=== PATIENT | female | born 1960 | race Caucasian/White ===

== ENCOUNTER 2016-06-16 19:28 | Inpatient (IN) | payer MEDICAID ==
[~2016-06-16] VITALS: Ht 162.6 cm; Wt 54.8 kg
--- NOTE | ~2016-06-16 | OR ---
PATIENT'S NAME: MARIE STOCK [facility] AGE: 56 Y [address] ROOM: [place] [address] LOCATION: [facility] [place] ADMIT DATE: 06/16/2016 OR/Procedure Report DISCHARGE DATE: FAMILY PHYSICIAN: Rajinder Villarreal DO ATTENDING PHYSICIAN: Jah OSORIO SURGEON: Darrick Dunbar MD POTTER OR CERAMIC ARTIST: DATE OF PROCEDURE: 06/24/2016 PROCEDURE: Paracentesis. INDICATION: Ascites. PROCEDURE NOTE: Informed consent was obtained. Risks and benefits explained. Using ultrasound guidance, a pocket of fluid was identified on the left lower quadrant. The patient was prepped in sterile fashion. Local anesthesia was achieved with lidocaine 1%. Ten blade was used to make a gómez. Paracentesis catheter was advanced with aspiration of yellow liquid. Catheter was advanced over the needle and needle was inserted. Using vacuum container system, 8.5 L of franko yellow liquid was aspirated without any complication. No immediate complications were noted. Fluid was sent for cytology. We already had a cell count and differential from the previous procedure. DARRICK DUNBAR MD MERRICK/anyil /[id number] d: 06/24/16 2309 t: 06/29/16 1502, OPERATIVE SUMMARY
--- NOTE | ~2016-06-16 | HP ---
PATIENT'S NAME: MARIE STOCK [facility] AGE: 56 Y [address] ROOM: [address] [place], [place] [address] [place] [facility] [place]: 06/16/2016 History & Physical DISCHARGE DATE: FAMILY PHYSICIAN: PHYSICIAN, UNKNOWN ATTENDING PHYSICIAN: Jah OSORIO DATE OF SERVICE: CHIEF COMPLAINT: Hepatic encephalopathy and gross ascites. HISTORY OF PRESENTING ILLNESS: This 56-year-old white female, who appears much older than her stated age was transferred to [facility] from [place] with presumed hepatic encephalopathy and gross ascites. She has a history of hepatitis C. She had followed with a specialist in [place], but switched to Dr. Miller in [place] at [facility] last fall apparently. She was treated with ribavirin, but has not been taking it recently. The reasons are unclear. Briefly, she was to attend a family barbecue. Family members found her essentially unresponsive and she was taken to the [place] [facility]. While she was there, and during her evaluation, she did eventually become more arousable. She had some basic laboratory workup including CBC, CMS, and received some IV fluids there. Because of the concern for worsening condition and the need for specialty care, it was requested to transfer her to [facility] under the care of Dr. Miller. Apparently, she was declined for admission there and it was decided to transfer her here for a higher level of care and definitive evaluation and management. The case had been discussed with Dr. Collado, Gastroenterology. On her arrival to the floor, she is awake and oriented. She complains of feeling unwell and has not felt well for several weeks. She describes a feeling of weakness and malaise and abdominal distress. She has also had quite a bit of nausea for the last 24 hours. She has not vomited. Bowels have been moving fairly regularly, although she has not stooled since yesterday. She voids normally and denies any dysuria, frequency, or urgency. She has not noticed any bleeding and no blood in her stools or black tarry stools. She denies any other associated physical constitution complaints. PAST MEDICAL HISTORY: ALLERGIES: NO KNOWN DRUG ALLERGIES. PATIENT'S NAME: MARIE STOCK [facility] AGE: 56 Y [address] [facility]: [facility] [place], [place] [address] [place] [facility] [place]: 06/16/2016 History & Physical DISCHARGE DATE: FAMILY PHYSICIAN: PHYSICIAN, UNKNOWN ATTENDING PHYSICIAN: Jah OSORIO ILLNESSES: 1. Hepatitis C. 2. Cirrhosis of the liver. 3. Tobacco dependence. 4. Severe protein calorie malnutrition. 5. Abdominal ascites status post previous abdominal paracentesis within the last 3-4 months. CURRENT MEDICATIONS: Spironolactone 200 mg p.o. daily, Lasix 80 mg p.o. daily, ribavirin 400 mg p.o. b.i.d., (not currently taking.) FAMILY HISTORY: Negative for heart attack or stroke. SOCIAL HISTORY: She is and lives independently in [place]. Her mother and her brother provide good social support. She has a 30+ pack year history of smoking tobacco, continues to smoke a couple of cigarettes per day. She denies significant alcohol use, although she has consumed alcohol occasionally. Her last drink was in February. She reports that she has currently quit. She denies any other illicit drug use. She thinks that she may have contracted hepatitis C from a tattoo. REVIEW OF SYSTEMS: As per HPI. All other organ systems reviewed and are negative. OBJECTIVE: VITAL SIGNS: Temperature. 98.9, pulse 102, respirations 18, blood pressure 134/88, O2 saturation 100% on room air. GENERAL: She is disheveled, ill appearing, much older than her stated age, but is in no acute distress. SKIN: Supple, sallow, warm and dry. There are areas of scabbing and erosion over the trunk abdomen and extremities. HEENT: Otherwise, normocephalic. Sclerae nonicteric. Pupils are equal, round, slow to react to light. Extraocular movements appear intact. Nasal turbinates normal in appearance. Oropharynx clear. Mucous membranes are pink and moist. She is edentulous. NECK: Supple. Cachectic. No masses or adenopathy. No thyromegaly. No JVD. CHEST: Wall is symmetrical. HEART: Tachycardic, but regular. LUNGS: Diminished at the bases with long expiratory phase. No yelitza wheezes. No rales or consolidation. ABDOMEN: Firm, protuberant. There is a tense ascitic fluid wave. No PATIENT'S NAME: MARIE STOCK [facility] AGE: 56 Y [address] ROOM: [address] [place] [id number] [place] [facility] [place]: 06/16/2016 History & Physical DISCHARGE DATE: FAMILY PHYSICIAN: PHYSICIAN, UNKNOWN ATTENDING PHYSICIAN: Jah OSORIO palpable masses. Bowel sounds are present. and RECTAL: Not done. EXTREMITIES: Display cachexia. No clubbing, cyanosis, or edema. NEUROLOGICALLY: Mentation is slowed, but she is oriented x2 (not oriented to the date). There are no focal deficits. LABORATORY AND X-RAY DATA: From [place], urinalysis shows trace intact blood. Urine for drugs of abuse is negative. Serum ethanol is below limits of detectability. Chemistries reveal a BUN and creatinine of 52 and 1.7 respectively. Sodium and potassium 140 and 5.2, chloride and CO2 are 105 and 22. AST and ALT 151 and 119 respectively, bilirubin is 1.4. Glucose was 111. PT/INR 14.5 and 1.1 respectively. CBC showed a white blood cell count of 7.4, hemoglobin is 12.4, hematocrit 34.9, platelets 248. CT scan of the head is negative for any acute intracranial process. ASSESSMENT/PLAN: 1. Acute encephalopathy, hepatic. Clinically improved from the point of her presentation. We will admit to inpatient care and provide some supportive cares and clinical monitoring. We will hold off on any additional IV fluids for tonight, but initiate a bowel regimen with lactulose and start rifaximin. We will get ammonia level tonight and follow that serially as well. The differential diagnosis does still include possible toxic and metabolic causes and including the possibility of infectious causes (see below.). 2. Abdominal ascites, secondary to cirrhosis of the liver. We will initiate a diuretic regimen with IV Bumex. We will give albumin beginning this evening and 25 g daily for total of 3 days. We will hold the oral Lasix and monitor her electrolytes serially. There is mild concern for bacterial peritonitis. We will obtain blood cultures and lactate. We will not be able to obtain abdominal paracentesis tonight or even possibly tomorrow. We will go ahead and initiate broad-spectrum antibiotic therapy with Rocephin 2 grams IV Q 24 hours. 3. Acute kidney injury. On chronic kidney disease, stage III. We will add albumin as above. Avoid overly aggressive IV fluids at least for now and follow this serially with diuresis. 4. Hepatitis C with cirrhosis of the liver. She has been treated with ribavirin as outlined above. She is not currently taking that medication and the reasons are unclear. Her current MELD score based on data from [place] is 14. I did discuss code status with her and she requested to be DNR and DNI, although she appears lucid and able to make rational decisions, we will hold off on entering in order into the chart until this can be discussed with her again serially tomorrow. 5. Deep venous thrombosis prophylaxis. We will utilize pneumatic compression devices, but hold off on heparin or Lovenox in light of the PATIENT'S NAME: MARIE STOCK [facility] AGE: 56 Y [address] ROOM: [place] [address] [place] [facility] [place]: 06/16/2016 History & Physical DISCHARGE DATE: FAMILY PHYSICIAN: PHYSICIAN, UNKNOWN ATTENDING PHYSICIAN: Jah OSORIO possibility of abdominal paracentesis within the next 24 hours. MD ZACH SCHULTZ/lucero /[id number] D: T: HISTORY & PHYSICAL
--- NOTE | ~2016-06-16 | DS ---
PATIENT'S NAME: MARIE STOCK [facility] AGE: 56 Y [address] ROOM: [address] [place] [id number] LOCATION: [facility] [place] ADMIT DATE: 06/16/2016 Discharge Summary DISCHARGE DATE: FAMILY PHYSICIAN: Rajinder Villarreal DO ATTENDING PHYSICIAN: Jah OSORIO DISCHARGE SUMMARY/TRANSFER NOTE PRINCIPAL DIAGNOSES: 1. Decompensated liver disease leading to refractory ascites and hepatic encephalopathy. 2. Hepatitis C, untreated. 3. Liver cirrhosis. 4. Severe protein calorie malnutrition. HOSPITAL COURSE: A 56-year-old lady who appears much older than her stated age with a history of tobaccoism and cirrhotic liver disease. The patient of Dr. Miller at [facility], who was transferred here from [facility] with altered mental status. On initial evaluation in the hospital, she was found to be in hepatic encephalopathy. She was treated with lactulose as well as rifaximin with gradual improvement of her mentation and being totally alert and oriented on the day of the transfer. During the course of the hospitalization which was over 1 week, she developed massive ascites which was tapped three times with a total paracentesis fluid of 22 L. She also developed KERRY, all the diuretics and antihypertensives were held. She was volume expanded with the crystalloid as well as colloid without a significant improvement in the kidney function. Nephrology and Gastroenterology consultation was made and she was started on midodrine, octreotide, and scheduled albumin considering the diagnosis of hepatorenal syndrome. On consultation with Nephrology and Gastroenterology, it was decided that the patient would benefit from further evaluation for liver transplant at this point. On the day of the transfer, we stopped her albumin given albumin was 4.7, as well as switch octreotide to subcutaneous dosing as well as continuing the midodrine. Her MELD score today is 14 using the INR from yesterday. CBC today showed hemoglobin of 9.0, hematocrit of 26. Platelets yesterday were 154. The chemical panel today showed sodium of 141, potassium 4.1, chloride 113, bicarb 17, calcium 8.1, BUN 52. Current medication orders include octreotide 200 mcg t.i.d. subcu, heparin 5000 units q.8 hours subcu, lactulose 30 mL t.i.d. p.o., midodrine 15 mg t.i.d. a.c., pantoprazole 40 mg p.o. daily, Florastor 250 mg b.i.d., rifaximin 550 mg b.i.d., ceftriaxone 2 g IV daily. She has been on ceftriaxone since for 06/16/2016 for a total of 9 days, now which can be stopped. She can use oral prophylactic dose of ciprofloxacin for SBP prophylaxis. I did speak to the hospitalist from [facility], who graciously accepted this patient. Condition on transfer stable, vitals stable. The patient will be transported on an ambulance. PATIENT'S NAME: MARIE STOCK [facility] AGE: 56 Y [address] ROOM: [place] [address] LOCATION: [facility] [place] ADMIT DATE: 06/16/2016 Discharge Summary DISCHARGE DATE: FAMILY PHYSICIAN: Rajinder Villarreal DO ATTENDING PHYSICIAN: Jah OSORIO MD MERRICK TORREZ/lucero /[id number] d: 06/25/16 1603 t: 06/29/16 1505, DISCHARGE SUMMARY
--- NOTE | ~2016-06-16 | CON ---
PATIENT'S NAME: MARIE STOCK [facility] AGE: 56 Y [address] ROOM: [address] [place], [place] [address] LOCATION: [facility] [place] ADMIT DATE: 06/16/2016 Consultation DISCHARGE DATE: FAMILY PHYSICIAN: Rajinder Villarreal DO ATTENDING PHYSICIAN: Jah OSORIO DATE OF CONSULTATION: 06/17/2016 REFERRING PHYSICIAN: Adolfo Collado MD REASON FOR CONSULTATION: Acute kidney injury. REFERRING PHYSICIAN: Braydon Nagy MD. HISTORY OF PRESENT ILLNESS: A 56-year-old, female, with history of hepatitis C-related end-stage kidney disease, was on Lasix and Aldactone and possibly ribavirin best antiviral agent for hepatitis C, transferred from [place] with portosystemic encephalopathy. Nephrology consultation has been called for an KERRY. As per patient, she was attending a [facility] yesterday when the relative found her essentially unresponsive and taken her to the [place] Emergency Room; however, during the evaluation over there, she became more arousable. She received some IV fluids there, had some basic lab workup; however, she was requested to transfer to [facility] for further management. As per the previous records, she was following with Dr. Miller at [facility] for her hepatitis C where she was getting an IV medications for hepatitis C since January last year and was also on ribavirin, but which she is not taking for the last few weeks to months. She is noted to have significant ascites as per patient, which is slightly worse than before. She was on Lasix and Aldactone, Lasix 80 mg p.o. daily and Aldactone 200 mg p.o. daily, and the patient has claimed that she was compliant with her medication. She is noted to have other stigmata of chronic liver disease including spider angiomata and distended abdominal veins. She also noted to have some itchy rash on bilateral upper and lower extremities along with the trunk, but it is not raised maculopapular rash as we see in the cryoglobulinemia associated with hepatitis C. Among the lab tests done in [place], we also noted that the urinalysis shows specific gravity of 1.020, but other than that, urine appears to be pretty bland without any significant protein or blood in the urine. The patient's creatinine in March was 0.7, which is 1.7 at [place] and 1.8 on transfer. The patient denied any urinary symptoms including dysuria, urgency, frequency, hesitancy, but could not specify any thing about urinary volume. REVIEW OF SYSTEMS: GENERAL: No fever. No chills or rigor. HEENT: No sore throat. No sinus congestion. CVS: No chest pain. Has some exertional shortness of breath. No leg swelling. RESPIRATORY: Occasional shortness of breath. No cough or wheezing. GENITOURINARY: No pain with urination. No increased frequency. No nocturia. GASTROINTESTINAL: Significant abdominal distention with ascites as mentioned in HPI. No abdominal pain. No nausea or vomiting. NEUROLOGIC: No weakness. No seizures. SKIN: No rash. No itching. ALLERGIES: No seasonal allergy. No hayfever. ENDOCRINE: No heat intolerance. No cold intolerance. PSYCHIATRIC: No sadness. No crying spells. No history of panic attack.PATIENT'S NAME: MARIE STOCK [facility] AGE: 56 Y [address] ROOM: [place] [address] LOCATION: [facility] [place] ADMIT DATE: 06/16/2016 Consultation DISCHARGE DATE: FAMILY PHYSICIAN: Rajinder Villarreal DO ATTENDING PHYSICIAN: Jah OSORIO PAST MEDICAL HISTORY: 1. Hepatitis C. 2. End-stage liver disease/cirrhosis of liver. 3. Severe protein calorie malnutrition. 4. Tobacco dependence. 5. Progressive ascites, status post previous paracentesis in the last 3-4 months. ALLERGIES: NO KNOWN DRUG ALLERGIES. CURRENT MEDICATIONS: 1. Lasix 80 mg p.o. daily. 2. Spironolactone 200 mg p.o. daily. 3. Ribavirin 400 mg p.o. b.i.d., but currently not taking. FAMILY HISTORY: Noncontributory for kidney disease or dialysis. SOCIAL HISTORY: . Lives independently at [place]. Has good social support including her mother and brother. 30 [id number] history of smoking, still continue to smoke a couple of cigarettes per day. No significant alcohol abuse, but in the past has consumed alcohol occasionally, last drink was in February. No history of illicit drug use and contracted hepatitis C from a tattoo. PHYSICAL EXAMINATION: VITAL SIGNS: Blood pressure 120 to 150 over 60 to 80, temperature 98.9, pulse 90-100, respiratory rate 18, and oxygen saturation 95-97% on room air. GENERAL: Middle aged lady, lying in bed, appears to be cachectic, but not in apparent distress. HEAD: Dry mucous membrane. Bilateral PERRLA. Scleral icterus. NECK: JVD at the upper border of this clavicle. No thyromegaly or lymphadenopathy. CVS: S1 and S2 plus irregular rate. No significant murmur, rub, or gallop. CHEST: Bilateral air entry equal. No wheeze or rales. ABDOMEN: Soft, distended. No significant tenderness. Bowel sounds present. Significant distention of the abdominal wall veins. EXTREMITIES: No cyanosis, clubbing, or jaundice. No dependent edema. MUSCULOSKELETAL: No limitation of range of motion. SKIN: No pallor, cyanosis, or icterus. MICROBIOLOGY PROFESSOR: Mental status is still cloudy, however, could participate in a meaningful conversation. Moving all 4 extremities. No gross focal neurological deficit. LABORATORY STUDIES: Lactate 2.2. Ammonia 55. CBC: Hemoglobin 10.9, WBC 7.5, and platelet 243. Chemistry: Sodium 139, potassium 4.1, chloride 106, bicarbonate 20, BUN 50, and creatinine 1.8. Albumin 2.5, phosphorus 3.1, and magnesium 2.0. UA and urine electrolytes are pending.PATIENT'S NAME: MARIE STOCK [facility] AGE: 56 Y [address] ROOM: [place] [address] LOCATION: [facility] [place] ADMIT DATE: 06/16/2016 Consultation DISCHARGE DATE: FAMILY PHYSICIAN: Rajinder Villarreal DO ATTENDING PHYSICIAN: Jah OSORIO ASSESSMENT/PLAN: 1. Acute kidney injury versus acute kidney injury on chronic kidney disease. Creatinine in March was 0.77 and currently it is 1.7-1.8 range; however, we do not have any interval creatinine since March and we do not know most recent renal function; however, it appears to be acute with possible overdiuresis, especially in context of poor oral intake, although the patient has end-stage liver disease with significant hypoalbuminemia, but has no signs of dependent edema. JVD appears to be collapsed. We will try on gentle volume expansion with colloids. Giving further crystalloids may not be helpful and will end up increased worsening her ascites. We will hold diuretic for couple of days and start the patient on albumin 25% 100 mL q.6 hourly for at least 48 hours. Although hepatorenal syndrome is a consideration, but in absence of very marginal blood pressure very unlikely and blood pressure at this point is 120-150, and we do not think there is any role of splanchnic vasoconstrictor at this point. Avoid nephrotoxins, maintain hemodynamic stability with MAP of more than 65. Avoid nephrotoxins including NSAIDs and contrast media. Please send UA and urine electrolytes including sodium, potassium, creatinine osmolality. Urine dipstick from [employer] is relatively bland except the specific gravity is 1.020 which we can expect in the patients with liver disease. However, with hepatitis C, we can see cryoglobulinemia, so please send a serum cryoglobulin level and we will also wait for urine dipstick to see for any significant proteinuria or hematuria. 2. Hepatitis C, was on ribavirin versus ribavirin best combined antiviral agents. We need to get more records at [facility] from Hepatology. Dr. Collado, a clinical informatics strategist she is following here. 3. Portosystemic encephalopathy. Mental status, although appears to be reasonable at this point, but somewhat fluctuating. We will give lactulose as per GI, and GI is also requested about alpha-fetoprotein, we will send it to the lab. 4. Chronic tobacco dependence. The patient has been counseled to avoid tobacco as much as possible. We may use nicotine replacement therapy as necessary. Thank you for allowing me to participate in this patient's care. We will closely monitor the patient's progress along with you. JOLYNN BOYD MD /modl /[id number] d: 06/17/162028 t: 06/21/16 1229, CONSULTATION REPORT
--- NOTE | ~2016-06-16 | CON ---
PATIENT'S NAME: MARIE STOCK [facility] AGE: 56 Y [address] ROOM: [place] [address] [place] [facility] [place]: 06/16/2016 Consultation DISCHARGE DATE: FAMILY PHYSICIAN: Rajinder Villarreal DO ATTENDING PHYSICIAN: Jah OSORIO REFERRING PHYSICIAN: Adolfo Collado MD REFERRING PHYSICIAN: Sharad Tyson MD. REASON FOR CONSULTATION: Possible hepatic encephalopathy. HISTORY OF PRESENT ILLNESS: The patient is a poor historian, just coming out of her encephalopathy, was not able to give some history. She is referred to us by [place]. She was admitted there with unresponsiveness. She was there to attend a family barbecue, was found to have passed out. She came down to the emergency room in [place]. She eventually got somewhat more arousable. She was ultimately transferred here for higher level of care. She also had significant abdominal distention at that time. The patient gives a very poor history right now. She denies any abdominal discomfort, was complaining of some abdominal distention. She was initially transferred to [place], but I guess a bed could not be arranged. She was referred here for further management. When she arrived here, she was awake and oriented. She stated that she had been feeling unwell for several weeks. Denies any melena. Has had no hematemesis. We are not clear about her history and treatment in [place]. It appears that she may have been on antiviral therapy which has shrestha ultimately discontinued for unclear reasons. (we did talk to her the next day and she told me that she was waiting for the antiviral electronics manufacturer to provide her the drug on compassionate grounds) PAST MEDICAL HISTORY: ALLERGIES: NO KNOWN DRUG ALLERGIES. PAST ILLNESSES: Include hepatitis C, cirrhosis of the liver, tobacco dependence, severe protein calorie malnutrition, and abdominal ascites and has had prior paracentesis. MEDICATIONS: When she presented include, 1. Spironolactone. 2. Lasix. PATIENT'S NAME: MARIE STOCK [facility] AGE: 56 Y [address] ROOM: [place] [address] [place] [facility] [place]: 06/16/2016 Consultation DISCHARGE DATE: FAMILY PHYSICIAN: Rajinder Villarreal DO ATTENDING PHYSICIAN: Jah OSORIO FAMILY HISTORY: There is no history of cardiac disease. There is a history of lung cancer in father. PAST SURGICAL HISTORY: Significant for tonsillectomy. REVIEW OF SYSTEMS: Very difficult to obtain. Limited review of systems was obtained and also information obtained from the chart. It appears to be negative other than what is mentioned in the history of present illness and past medical history. PHYSICAL EXAMINATION: GENERAL: She is awake, but slow to respond; general exam reveals no icterus, but she does have a flapping tremors. Extremely emaciated. VITAL SIGNS: Temperature 97.5, pulse is 94 per minute, respiratory rate 18, and blood pressure 132/76. CHEST: She has good air entry bilaterally, which is somewhat of a hyperdynamic circulation. CARDIOVASCULAR: S1 and S2. MUSCULOSKELETAL: Extremities reveal scratch parada. She does complain of some itching. ABDOMEN: Massively distended, positive fluid thrill, and significant ascites. NEUROLOGICAL: Other than the mental status changes, no acute neurological deficit. LABORATORY DATA: Blood cultures are negative to date. Renal panel today shows sodium 139, potassium 4.1, chloride 106, bicarb is 20, BUN is 50, and creatinine is 1.8. Complete blood count shows WBC 7.5, hemoglobin 10.9, hematocrit 31.3, and platelet count is 243. Lactate is 2.2, which is increased. Ammonia venous is 55, again somewhat increased. Her drug screen was negative. Urinalysis is negative. Ethanol level was less than 0.010. Her albumin was 2.8. Total bilirubin 1.4, ALT of 119, AST of 151. She had a CT of the head done, this showed an acute intracranial pathology. INR is 1.1. IMPRESSION: 1. The patient has a history of decompensated liver cirrhosis, presenting now with portosystemic encephalopathy. She is currently on rifaximin as well as some lactulose. I would add at this time some rectal lactulose as well as increase the oral lactulose. We should do an ultrasound of the abdomen to ensure there is no new liver lesion suggestive of metastatic carcinoma. 2. The patient has massive ascites. Her renal functions are also somewhat impaired. She does seem to be having either dehydration or early PATIENT'S NAME: DAYAMI MARIE J [facility] AGE: 56 Y [address] ROOM: [address] [address] [place]: [facility] [place]: 06/16/2016 Consultation DISCHARGE DATE: FAMILY PHYSICIAN: Rajinder Villarreal DO ATTENDING PHYSICIAN: Jah OSORIO hepatorenal. I would therefore suggest that we hold off on her diuretics. Continue the albumin. She would probably benefit from treatment with a paracentesis. 3. The patient should also have an alpha-fetoprotein level done. The overall prognosis does not appear to be good. I will review the records from [place] and see what their planning regarding transplant. She may need to be referred to a higher level. This was discussed with the hospitalist. MD BELLO LUU/lucero /[id number] d: [id number] t: 06/18/16 1647, CONSULTATION REPORT
[2016-06-16] MEDS ORDERED: ALDACTONE100 MG PO (21:47)
[2016-06-16] MEDS ORDERED: LASIX20 MG PO (21:48)
--- NOTE | 2016-06-17 00:04 | NUR ---
PT ARRIVES TO FLOOR AT 2120 PER AMBULANCE FROM [facility].ACCORDING TO FAMILY PT WAS NOT ANSWERING PHONE SO THEY WENT TO CHECK ON HER AND HER MENTAL STATUS WAS CHANGED.PT IS ALERT TO PERSON/PLACE HOWEVER IS CONFUSED TO TIME.PT TEETH AND PT STATES SHE DOES NOT HAVE DENTURES,D/T THIS SPEECH IS HARD TO UNDERSTAND AT TIMES.GENERAL APPERANCE IS JAUNDICE IN COLOR,EYES WELL. PT NOTED TO HAVE NUMEROUS OPEN SORES/SCABBED SORES. PT DENIES DRUG OR ALCHOLOL USE STATES THAT SHE IS UNAWARE WHERE SHE GOT THE HEP C. PT LIVES AT HOME ALONE STATES FAMILY CHECKS ON HER DAILY.PT HAS HX OR CIRRHOSIS OF THE LIVER,HEP C.PT DENIES ALLERGIES,IS A POOR HISTORIAN DUE TO ALTERED MENTAL STATUS. ABDOMEN IS VERY DISTENDED AND FIRM.ZELAYA IN PLACE UPON ARRIVAL,SL LOCK TO LEFT WRIST.
--- NOTE | 2016-06-17 02:49 | NUR ---
Significant Event:Pt alert to self and place however continues to be disoriented to time. pt continues to be sleepy on and off,does awake easily. iv dcd to left wrist, and new iv started to right forearm.continues to pick at skin,causing bleeding. incont of stool. sands patent with dark yellow urine. pt abdomen continues to be distended and painful with movement. firm to touch. vss at this time. uses call light approp. Follow up:
[2016-06-17 05:12] LABS: BASOPHIL # 0.1 K/uL (0.0-0.2); BASOPHIL % 0.8 %; EOSINOPHIL # 0.1 K/uL (0.0-0.5); EOSINOPHIL % 0.8 %; HEMATOCRIT 31.3 % (33.0-46.0); HEMOGLOBIN 10.9 g/dL (10.0-15.0); IMMATURE GRANULOCYTE % 0.3 %; LYMPHOCYTE # 0.9 K/uL (0.8-4.0); MCH 33.4 pg (27.0-34.0); MCHC 34.8 gm/dL (32.0-36.5); MONOCYTE # 0.8 K/uL (0.0-1.0); MONOCYTE % 10.9 %; NEUTROPHIL # (ANC) 5.7 K/uL (1.8-7.8); NEUTROPHIL % 75.2 %; NRBC % 0 /100WBC (0-0.00); PLATELET COUNT 243 K/uL (150-450); RBC 3.26 M/uL (3.50-5.50); RDW-CV 15.4 % (11.9-14.6); WBC 7.5 K/uL (4.0-11.0)
[2016-06-17 05:31] LABS: ALBUMIN 2.5 gm/dL (3.5-5.0); ANION GAP 17.1 (10.0-19.0); CALCIUM 9.3 mg/dL (8.5-10.5); CREATININE 1.8 mg/dL (0.5-1.1); PHOSPHORUS 3.1 mg/dL (2.5-4.9); POTASSIUM 4.1 mMol/L (3.7-5.1)
--- NOTE | 2016-06-17 18:47 | NUR ---
Patient is alert and oriented, VSS, on room air. SBA. Rosa is patent with 1450 out. R) forearm IV is saline locked. Enulose PO Q6 hours, hold if >4 BMs in 6 hours. Enulose enemas (100ml of enulose in 300ml of NS) BID started today. Needs urine sample. Plan for paracentesis tomorrow.
[2016-06-18 02:20] LABS: BILIRUBIN URINE NEGATIVE (NEGATIVE); BLOOD URINE 250 /UL (NEGATIVE); COLOR URINE YELLOW (YELLOW); GLUCOSE URINE NEGATIVE (NEGATIVE); KETONE URINE 5 mg/dL (NEGATIVE); LEUKOCYTES URINE 500 /UL (NEGATIVE); NITRITE URINE NEGATIVE (NEGATIVE); PROTEIN URINE 100 mg/dL (NEGATIVE); TURBIDITY URINE 1+ (CLEAR); UROBILINOGEN URINE NORMAL (NORMAL)
[2016-06-18 02:28] LABS: RBC URINE FULL FIELD #/HPF (NEGATIVE)
[2016-06-18 02:29] LABS: AMORPHOUS URINE 1+ (NEGATIVE); BACTERIA URINE FEW (NEGATIVE); HYALINE CAST URINE 0-2 #/LPF (NEGATIVE)
--- NOTE | 2016-06-18 03:04 | NUR ---
Significant Event:PT AAOX3.CONTINUES TO BE SLEEPY DURING SHIFT. AWAKES EASILY HOWEVER GOES RIGHT BACK TO SLEEP. ABDOMEN CONTINUES TO BE VERY DISTENDED AND FIRM.PT VSS.IS HAVING NUMEOUS LOOSE STOOLS. PT REFUSED ENEMA AT HS HOWEVER AGREED TO TAKE THE ORAL. PT IV TO RIGHT FOREARM SL. ZELAYA CATH PATENT. CONTIUES TO PICK AT SORES ALL OVER BODY. USES CALL LIGHT APPROP. Follow up:
[2016-06-18 04:53] LABS: BASOPHIL # 0.1 K/uL (0.0-0.2); EOSINOPHIL # 0.1 K/uL (0.0-0.5); EOSINOPHIL % 2.3 %; HEMATOCRIT 31.7 % (33.0-46.0); HEMOGLOBIN 10.8 g/dL (10.0-15.0); IMMATURE GRANULOCYTE % 0.5 %; LYMPHOCYTE # 0.7 K/uL (0.8-4.0); LYMPHOCYTE % 12.2 %; MCH 33.6 pg (27.0-34.0); MCHC 34.1 gm/dL (32.0-36.5); MCV 98.8 fl (83.0-98.0); MONOCYTE # 0.5 K/uL (0.0-1.0); MONOCYTE % 8.9 %; MPV 9.8 fl (9.4-12.4); NEUTROPHIL # (ANC) 4.5 K/uL (1.8-7.8); NEUTROPHIL % 75.1 %; NRBC % 0 /100WBC (0-0.00); PLATELET COUNT 207 K/uL (150-450); RBC 3.21 M/uL (3.50-5.50); RDW-CV 15.3 % (11.9-14.6)
[2016-06-18 05:02] LABS: INR - (THERAPEUTIC) 1.35 (0.92-1.07); PROTIME 14.2 SECONDS (9.8-11.4)
[2016-06-18 05:09] LABS: ALBUMIN 3.5 gm/dL (3.5-5.0); ANION GAP 16.5 (10.0-19.0); CALCIUM 9.5 mg/dL (8.5-10.5); CREATININE 1.8 mg/dL (0.5-1.1); POTASSIUM 3.5 mMol/L (3.7-5.1); TOTAL BILIRUBIN 1.4 mg/dL (0.0-1.5); TOTAL PROTEIN 6.7 g/dL (6.0-8.4)
--- NOTE | 2016-06-18 12:31 | NUR ---
Student nurse provided patient cares from 0600 to 1230. Thony Wisodm RN, [facility] Instructor
[2016-06-18 16:28] LABS: BILIRUBIN URINE NEGATIVE (NEGATIVE); BLOOD URINE 250 /UL (NEGATIVE); GLUCOSE URINE NEGATIVE (NEGATIVE); KETONE URINE 5 mg/dL (NEGATIVE); LEUKOCYTES URINE 100 /UL (NEGATIVE); NITRITE URINE NEGATIVE (NEGATIVE); PROTEIN URINE 30 mg/dL (NEGATIVE); UROBILINOGEN URINE NORMAL (NORMAL)
[2016-06-18 16:32] LABS: COLOR URINE YELLOW (YELLOW); TURBIDITY URINE 2+ (CLEAR)
[2016-06-18 16:36] LABS: BACTERIA URINE MODERATE (NEGATIVE); RENAL EPITH URINE 0-2 #/HPF (NEGATIVE)
[2016-06-18 16:37] LABS: AMORPHOUS URINE 1+ (NEGATIVE); MUCUS URINE 1+ (NEGATIVE)
--- NOTE | 2016-06-18 17:16 | NUR ---
Patient is alert and oriented, hypotensive, on room air. SBA. Went down for a paracentesis today and had 12L pulled off. IV was infiltrated when she returned, attempted to put in new IV with no success. Midline was finally placed after some difficulty in the L) upper arm. Albumin was started per order but 1100 albumin was not given due to the infiltrated IV. 1L NS bolus was given with instructions to call an update to Dr. Estrella at 1700 with current BP. BP was 96/52, order was received to start another bolus of NS 1L. He would like her BP to be in the 130's. Patient has had 4 BMs since returning from paracentesis, will hold PO Enulose this dose. Her bottom is sore and red, applied aloe vesta with each pericare. Rosa catheter is patent with only 350ml of dark yellow urine out. Strict I/O's, daily standing weight. Will be NPO after midnight for an EGD in the AM. Continue with albumin and monitor BMs.
[2016-06-19 01:45] LABS: BASOPHIL % 0.6 %; EOSINOPHIL # 0.1 K/uL (0.0-0.5); EOSINOPHIL % 1.8 %; HEMATOCRIT 27.5 % (33.0-46.0); HEMOGLOBIN 9.1 g/dL (10.0-15.0); IMMATURE GRANULOCYTE % 0.3 %; LYMPHOCYTE # 0.6 K/uL (0.8-4.0); LYMPHOCYTE % 8.5 %; MCH 33.3 pg (27.0-34.0); MCHC 33.1 gm/dL (32.0-36.5); MCV 100.7 fl (83.0-98.0); MONOCYTE # 0.6 K/uL (0.0-1.0); MONOCYTE % 9.1 %; NEUTROPHIL # (ANC) 5.2 K/uL (1.8-7.8); NEUTROPHIL % 79.7 %; NRBC % 0.3 /100WBC (0-0.00); RBC 2.73 M/uL (3.50-5.50); RDW-CV 15.5 % (11.9-14.6); WBC 6.6 K/uL (4.0-11.0)
[2016-06-19 01:48] LABS: PLATELET COUNT 160 K/uL (150-450)
[2016-06-19 01:58] LABS: ANION GAP 11.7 (10.0-19.0); CALCIUM 7.6 mg/dL (8.5-10.5); CREATININE 1.4 mg/dL (0.5-1.1); MAGNESIUM 1.5 mg/dL (1.3-2.6); POTASSIUM 3.7 mMol/L (3.7-5.1)
[2016-06-19 02:08] LABS: PHOSPHORUS 1.8 mg/dL (2.5-4.9)
--- NOTE | 2016-06-19 04:18 | NUR ---
Patient is alert, c/o feeling tired, has been hypotensive most of the shift, Darshana is aware, she has had fluid boluses and albumin order [id number], charting blood pressures hourly, abdomen is round and tender, had 350 out of folely and 4000+ for input this shift, other vitals remain stable, bottom is red/sore from bm she had two bm's this shift, has been NPO since midnight for EGD this am
[2016-06-19 05:12] LABS: BASOPHIL % 0.6 %; EOSINOPHIL # 0.1 K/uL (0.0-0.5); EOSINOPHIL % 1.8 %; HEMATOCRIT 27.7 % (33.0-46.0); HEMOGLOBIN 9.2 g/dL (10.0-15.0); IMMATURE GRANULOCYTE % 0.6 %; LYMPHOCYTE # 0.7 K/uL (0.8-4.0); LYMPHOCYTE % 10.4 %; MCH 33.6 pg (27.0-34.0); MCHC 33.2 gm/dL (32.0-36.5); MCV 101.1 fl (83.0-98.0); MONOCYTE # 0.5 K/uL (0.0-1.0); MONOCYTE % 7.8 %; MPV 10.2 fl (9.4-12.4); NEUTROPHIL % 78.8 %; NRBC % 0 /100WBC (0-0.00); PLATELET COUNT 163 K/uL (150-450); RBC 2.74 M/uL (3.50-5.50); RDW-CV 15.5 % (11.9-14.6); WBC 6.3 K/uL (4.0-11.0)
[2016-06-19 05:32] LABS: ALBUMIN 3.9 gm/dL (3.5-5.0); ANION GAP 12.6 (10.0-19.0); CALCIUM 7.6 mg/dL (8.5-10.5); CREATININE 1.4 mg/dL (0.5-1.1); POTASSIUM 3.6 mMol/L (3.7-5.1); TOTAL PROTEIN 5.3 g/dL (6.0-8.4)
[2016-06-19 05:35] LABS: TOTAL BILIRUBIN 1.1 mg/dL (0.0-1.5)
--- NOTE | 2016-06-19 10:05 | NUR ---
CONSULT RECEIVED TO START SUPPLEMENTS; PT IS CURRENTLY NPO. WILL START ENSURE ENLIVE TID WHEN ORAL DIET RESUMED.
--- NOTE | 2016-06-19 16:42 | NUR ---
Patient is alert and oriented, BPs are better than this morning, up into the 110's. She was hypotensive overnight in the 80's and 90's. Went down for an EGD today for possible varices, none were found. Regular diet started after return. Continues to have Enulose PO but refuses the enemas. Albumin scheduled Q 6 hours and will start an Octreotide drip. Will need to increase her MAP by 15mmHg from baseline (from 80 up to 95).
--- NOTE | 2016-06-20 04:58 | NUR ---
Significant Event: PATIENT IS ALERT AND ORIENTED X3 THROUGHOUT SHIFT. USES CALL LIGHT APPRPRIATELY. UP WITH STAND BY ASSIST. HX HEP C, PAST USE OF ETOH. LIV[place] [facility] [place]. ZELAYA OUT PUT 200. DIET TOLERATED. PATIENT ORDERS REGULAR FOOD ALTHOUGH SHE HAS NO TEETH. LESIONS ALL OVER BODY IN VARIOUS HEALING STAGES. PATIENT PICKS AT THESE SITES TO CAUSE THEM TO BLEED AND SCAB OVER. RECEIVES LACTULOSE Q4H AND REFUSES ENEMAS. ASCITES. PARACENTESIS ON 06/18 IN WHICH 12L WAS DRAINED CAUSING HYPOTENSION. OCTEOTIDE DRIP INFUSING TO MIDLINE TO LEFT UPPER ARM. RECEIVES ALBUMIN. Follow up:
[2016-06-20 06:13] LABS: BASOPHIL # 0.1 K/uL (0.0-0.2); BASOPHIL % 1.2 %; EOSINOPHIL # 0.3 K/uL (0.0-0.5); EOSINOPHIL % 3.8 %; HEMATOCRIT 28.1 % (33.0-46.0); HEMOGLOBIN 9.3 g/dL (10.0-15.0); IMMATURE GRANULOCYTE % 0.4 %; LYMPHOCYTE # 0.7 K/uL (0.8-4.0); LYMPHOCYTE % 10.3 %; MCH 33.7 pg (27.0-34.0); MCHC 33.1 gm/dL (32.0-36.5); MCV 101.8 fl (83.0-98.0); MONOCYTE # 0.5 K/uL (0.0-1.0); MONOCYTE % 7.1 %; MPV 10.4 fl (9.4-12.4); NEUTROPHIL # (ANC) 5.3 K/uL (1.8-7.8); NEUTROPHIL % 77.2 %; NRBC % 0 /100WBC (0-0.00); PLATELET COUNT 167 K/uL (150-450); RBC 2.76 M/uL (3.50-5.50); RDW-CV 15.5 % (11.9-14.6); WBC 6.9 K/uL (4.0-11.0)
[2016-06-20 06:17] LABS: ALBUMIN 4.4 gm/dL (3.5-5.0); ANION GAP 13.4 (10.0-19.0); CALCIUM 8.1 mg/dL (8.5-10.5); CREATININE 1.4 mg/dL (0.5-1.1); POTASSIUM 3.4 mMol/L (3.7-5.1)
[2016-06-20 06:19] LABS: PHOSPHORUS 1.5 mg/dL (2.5-4.9)
--- NOTE | 2016-06-20 16:29 | NUR ---
SPOKE TO PATIENT REGARDING CM AND OUR ROLE.PATIENT LIVES ALONE IN OWN HOME SHE TELLS ME THAT SHE HAS HELP FROM FRIENDS IF SHE NEEDS IT. PATIENT DOES NOT ANTICIPATE ANY DISCHARGE NEEDS AT THIS TIME. CM WILL CONT TO FOLLOW NEEDED.
--- NOTE | 2016-06-20 19:35 | NUR ---
Signficant event: Pt. A&Ox3, VSS on RA. Up with SBA. Hx Hep C. Rosa output 200 last night, blood pressures low this AM, called Dr. Estrella this AM and restarted on albumin. Stopped aldactone and lasix. Rosa output [address] Estrella was notified. No new orders. Lesions all over body, some are open. Bottom is sore and red, aloe vesta applied. Diarrhea throughout day, abrupt and incontinent several times this shift. Lactulose enemas d/c'd, remains on oral. Ascites, paracentesis site healed, open to air. Octeotide drip infusing at 50 mcg to left upper arm midline. Regular diet and Enlive at meals. Ambulates in halls and room ad joselo. Steady on feet.
--- NOTE | 2016-06-21 04:55 | NUR ---
Significant Event: Pt oriented x 3, drowsy this shift however very easy arousable. Midline IV to left upper anterior arm. Cont Octreotide drip and Q6 hour Albumin. Open lesions all over body and pt scratches them frequently. Rosa with 250mls out. MD notified and no new orders. No c/o pain. Standing weight 58.8 kg. 2 Moderate loose BM's this shift. Occassionaly incont, and bed alarm needs to be on at all times. Follow up: Pt would like to go outside if at all possible today.
[2016-06-21 05:13] LABS: ANION GAP 13.8 (10.0-19.0); CALCIUM 8.2 mg/dL (8.5-10.5); CREATININE 1.5 mg/dL (0.5-1.1)
[2016-06-21 05:16] LABS: POTASSIUM 4.8 mMol/L (3.7-5.1)
--- NOTE | 2016-06-21 09:00 | NUR ---
A - PT SCREENED D/T LOS. GLU 88, BUN/PHOTOENGRAVING PRINTER 40/1.5, ALB 4.4 (PT RECEIVING IV ALB). PT W/ ASCITES. LESIONS ALL OVER BODY, SOME OPEN. EST NEEDS: 7711-3198 KCALS, 71-88 GM PROTEIN, 1 ML/KCAL FLUIDS. DIET: REGULAR W/ ENSURE TID. INTAKE VARIES 25-100%. TAKING SUPPLEMENT WELL. D - AT RISK W/ INCREASED NUTRIENT NEEDS R/T ALTERED SKIN INTEGRITY AEB NUMEROUS O/A'S. I - GOAL: 75% OR BETTER INTAKE BY DIMISSAL. M/E - WILL CONT TO MONITOR INTAKE AND F/U IN 3-5 DAYS.
--- NOTE | 2016-06-21 19:00 | NUR ---
Significant Event: PT A/O. BPs RUNNING 101/62-95/60. MAPS >60 ALL DAY. AFEBRILE. MIDLINE TO CR, CONTINUES ON OCTREOTIDE GTT, Q6HR ABLUMIN, INTERMITTENT IV ABX. PO LACTULOSE SCHEDULED. HAD 2 BMs THIS SHIFT. ZELAYA PATENT, ONLY 200ML OUTPUT. ORDERS RECIEVED FOR UA SAMPLE, CATH IS BANDED OFF TO GET SAMPLE FROM PORT, NOT ENOUGH URINE PRESENT YET. AMBULATED WITH SBA IN HALLS. UP IN CHAIR OFF AND ON THROUGH DAY. PLAN IS BACK TO HOME ON DISMISSAL WITH HELP FROM FRIENDS. Follow up: CONT TO MONITOR
--- NOTE | 2016-06-22 03:19 | NUR ---
SIGNIFICANT EVENT: Patient alert, oriented. 1PA to BR. Hx Hepatitis C - good standard precautions, open wounds across body. Regular diet, but having difficulty with appetite and pain/diarrhea after eating. Has octreotide continuous drip - 50 mcg/hr, 2 mcg/mL, set at 25 mL/hr. New order for IV ceftriaxone, this is compatible with the octreotide. Albumin q6H, octreotide has to be paused during this. Rosa catheter only had 150 out this shift - consulted with charge, aware of low output . L) upper arm midline, good blood return. Held HS lactulose d/t more than 3 BM's between 1800 and 2200. VSS on RA.
[2016-06-22 05:40] LABS: ANION GAP 14.4 (10.0-19.0); CALCIUM 8.4 mg/dL (8.5-10.5); CREATININE 1.4 mg/dL (0.5-1.1); POTASSIUM 4.4 mMol/L (3.7-5.1)
--- NOTE | 2016-06-22 09:58 | NUR ---
[id number] Supervised [facility] Hand Stapler.
--- NOTE | 2016-06-22 10:08 | NUR ---
VN Note: Pt. educated extensively on DVT prevention and importance of wearing pneumatics. Patient continues to refuse to wear but does agree to pump calves, elevate feet, and ROM to feet/ankles frequently. Ambulating in halls this AM.
[2016-06-22 12:57] LABS: BILIRUBIN URINE NEGATIVE (NEGATIVE); BLOOD URINE 250 /UL (NEGATIVE); GLUCOSE URINE NEGATIVE (NEGATIVE); KETONE URINE NEGATIVE (NEGATIVE); LEUKOCYTES URINE 100 /UL (NEGATIVE); NITRITE URINE NEGATIVE (NEGATIVE); PROTEIN URINE 30 mg/dL (NEGATIVE); SPEC GRAVITY URINE 1.015 (1.003-1.035); UROBILINOGEN URINE NORMAL (NORMAL)
[2016-06-22 13:11] LABS: COLOR URINE YELLOW (YELLOW); TURBIDITY URINE 2+ (CLEAR)
[2016-06-22 13:15] LABS: BACTERIA URINE FEW (NEGATIVE); EPITHELIAL URINE 0-2 #/HPF (NEGATIVE); MUCUS URINE 1+ (NEGATIVE); RBC URINE FULL FIELD #/HPF (NEGATIVE); WBC URINE 20-50 #/HPF (NEGATIVE); YEAST URINE FEW (NEGATIVE)
--- NOTE | 2016-06-22 17:31 | NUR ---
Significant Event: PT AO. VSS ON RA, AFEBRILE. CONTINUES ON IV OCTREOTIDE GTT, IV ALBUMIN. SCHEDULED LASIX RESTARTED TODAY, NOTIFIED DR BOYD OF URINE OUTPUT AT END OF SHIFT, ORDERS FOR 80MG MORE LASIX RECIEVED. CT OF ABD/LIVER. HAD PARACENTESIS THIS AFTERNOON, TOTAL 3L REMOVED PER DR BARRY ORDERS. DRESSING TO ABDOMEN, CAN COME OFF TOMORROW AFTERNOON. PT/OT WORKING WITH. AMBULATES WITH SBA. HAD 2 BMs THIS SHIFT, IS CURRENTLY IN [facility] 3RD. Follow up: LACTULOSE, MONITOR VITALS
--- NOTE | 2016-06-23 04:40 | NUR ---
Significant Event: A/O X3 AND COOPERATIVE WITH CARES. DENIES PAIN. ABDOMEN STILL DISTENDED. DRESSING TO PARACENTESIS SITE. CONTINUES ON ALBUMIN Q6HRS. OCTREOTIDE DRIP INFUSING AT 50MCG/HR; NOT COMPATABLE WITH ALBUMIN. MIDLINE IV TO L) UPPER ARM. ZELAYA IS PATENT WITH HAZY YELLOW URINE, HAD 725ML OUTPUT THIS SHIFT AFTER LASIX FROM PRIOR SHIFT. MULTIPLE SORES THROUGHOUT BODY, PATIENT PICKS AT. HX HEP C. UP WITH SBA. SLEPT WELL THROUGH NIGHT. Follow up:
[2016-06-23 06:28] LABS: CALCIUM 8.4 mg/dL (8.5-10.5); CREATININE 1.6 mg/dL (0.5-1.1); POTASSIUM 4.3 mMol/L (3.7-5.1)
[2016-06-23 06:30] LABS: ANION GAP 15.3 (10.0-19.0)
[2016-06-23 16:01] LABS: TOTAL BILIRUBIN 0.8 mg/dL (0.0-1.5); TOTAL PROTEIN 6.2 g/dL (6.0-8.4)
--- NOTE | 2016-06-23 17:48 | NUR ---
Significant Event: PT AO. BPs THIS AM WERE HYPOTENSIVE- 70s/40s. PT [place], BPs HAVE STABALIZED SINCE. IV LASIX AND ALDACTONE DC'D. CONTINUES ON OCTREOTIDE GTT AND Q6HR ALBUMIN. PT SHOWERED. THERAPY WORKED WITH. ZELAYA PATENT, ONLY 250ML OUTPUT. AMBULATES WITH SUPERVISON. PT CURRENTLY OUTSIDE WITH FAMILY MEMBER. DR BOYD GAVE PT OK ON 06/22 (NURSE IN ROOM AND HEARD HIM STATE) LONG SHE DOES NOT SMOKE!. PT CHECKED FOR CIGARETTES PRIOR TO LEAVING UNIT. PT HAD 3 BM THIS SHIFT. MIDLINE TO CR. SORES ALL OVER BODY. HX HEP C + Follow up: CONTINUE TO MONITOR
[2016-06-23 18:53] LABS: INR - (THERAPEUTIC) 1.77 (0.92-1.07); PROTIME 18.7 SECONDS (9.8-11.4)
--- NOTE | 2016-06-24 04:11 | NUR ---
Significant Event:Patient not feeling well. Had 3 loose incontinent stools. Denies nausea or pain. Continues on albumin, octreotide, and Rocephin. 250ml out in urine. Follow up:Continue to monitor.
[2016-06-24 05:52] LABS: BASOPHIL % 0.5 %; EOSINOPHIL # 0.2 K/uL (0.0-0.5); EOSINOPHIL % 2.2 %; HEMATOCRIT 26.6 % (33.0-46.0); HEMOGLOBIN 8.9 g/dL (10.0-15.0); IMMATURE GRANULOCYTE # 0.1 K/uL (0.0-0.3); IMMATURE GRANULOCYTE % 0.7 %; LYMPHOCYTE # 0.6 K/uL (0.8-4.0); LYMPHOCYTE % 7.6 %; MCH 33.5 pg (27.0-34.0); MCHC 33.5 gm/dL (32.0-36.5); MONOCYTE # 0.7 K/uL (0.0-1.0); NEUTROPHIL # (ANC) 6.7 K/uL (1.8-7.8); NRBC % 0 /100WBC (0-0.00); PLATELET COUNT 154 K/uL (150-450); RBC 2.66 M/uL (3.50-5.50); WBC 8.2 K/uL (4.0-11.0)
[2016-06-24 06:06] LABS: INR - (THERAPEUTIC) 1.73 (0.92-1.07); PROTIME 18.3 SECONDS (9.8-11.4)
[2016-06-24 06:13] LABS: ALBUMIN 5.2 gm/dL (3.5-5.0); CALCIUM 8.7 mg/dL (8.5-10.5); CREATININE 1.6 mg/dL (0.5-1.1); TOTAL BILIRUBIN 0.9 mg/dL (0.0-1.5); TOTAL PROTEIN 7.1 g/dL (6.0-8.4)
--- NOTE | 2016-06-24 16:43 | NUR ---
Significant event: Patient is alert and oriented. Is forgetful at times. Has midline to left upper arm. VSS. On room air. Shelley fontana'd at 1400. Lactulose held this morning for loose stools in the night and patient refused [address] wants her to have at least 3 stools/day. Paracentisis done and 8.5ml removed. Possible home tomarrow.
[2016-06-25 05:48] LABS: HEMATOCRIT 26.4 % (33.0-46.0)
[2016-06-25 05:55] LABS: ALBUMIN 4.7 gm/dL (3.5-5.0); CALCIUM 8.1 mg/dL (8.5-10.5); CREATININE 1.2 mg/dL (0.5-1.1); POTASSIUM 4.1 mMol/L (3.7-5.1); TOTAL PROTEIN 6.1 g/dL (6.0-8.4)
[2016-06-25 05:56] LABS: ANION GAP 15.1 (10.0-19.0)
--- NOTE | 2016-06-25 06:37 | NUR ---
Significant Event: Patient pleasant and cooperative with cares, feeling better tonight. Had two small BM's last night so refused the lactolose. May go home today. Denies pain. Continues on sandostatin IV, rocephin, and albumin. Up with standby assist. Follow up: Continue to monitor and assess needs.
--- NOTE | 2016-06-25 16:15 | NUR ---
[id number] RECEIVED REFERRAL THAT PATIENT WILL BE TRANSFEREING TO [facility],DR. ONEIL SPOKE TO DR. SY WHO WILL ACCEPT PATIENT. I SPOKE TO MARIE AND SHE IS IN AGREEMENT TO GOING TO [facility]. SPOKE TO GAGAN WITH [facility] AND UPDATED HER THAT PATIENT WILL BE GOING TO [facility],GAGAN IS MAKING ARRANGEMENTS FOR AMBULANCE FROM [place] TO TRANSPORT PATIENT. I SPOKE TO DENNYS THE BED CORDNATOR AT [facility]. SHE WOULD LIKE FOR ME TO FAX THE FACE SHEET TO HER TO [phone] SY WOULD LIKE INFO FAXED TO [phone] I FAXED INFO THEM. ROBBIE THE CHARGE NURSE RECEIVED CALL FROM DENNYS AT [facility] SHE REPORTS THAT THEY HAVE A BED AT [facility] ROOM [address] BED 2 AND THE NUMBER FOR NURSE TO NURSE IS [phone]. THIS NUMBER WAS GIVEN TO EDWINA GOULD WHO IS THE PATIENT'S PRIMARY NURSE.
--- NOTE | 2016-06-25 16:33 | NUR ---
[facility] called to give a bed. Carmen from [facility]-[employer] flatbed truck driver called about 1620. She stated the room would be on the [facility] room [facility]. [id number] number would be [phone] Rose. Told Debi the behavioral health care coordinator she set up an ambulance also called the primary nurse to notify her. They called ER to get EMS.
--- NOTE | 2016-06-25 16:33 | NUR ---
Patient is alert and oriented and cooperative with cares. She is forgetful at times when calling for assistance. Midline IV to her L) upper arm that flushes well with good blood return. Patient denies discomfort. Patient has had 3 small, loose BM's for the shift and is voiding in small amounts of dark yellow urine. Patient has numerous sores over her entire body in various stages of healing. Patient is Hepatitis C positive. Ambulating with standby assist and gait is slightly unsteady at times.
== END 2016-06-25 16:55 | disposition critical access hospital (66) | DRG 441 ==
LOC: GMSU 21:14
PROVIDERS: Family Medicine; Internal Medicine; Internal Medicine Nephrology; Nurse Practitioner Family; ADMIT Internal Medicine
PROC: 0DJ08ZZ Inspection of Upper Intestinal Tract, Via Natural or Artificial Opening Endoscopic (ICD-10-PCS; 2016-06-19)
PROC: 0W9G3ZX Drainage of Peritoneal Cavity, Percutaneous Approach, Diagnostic (ICD-10-PCS; principal; 2016-06-24)
DX: K72.90 Hepatic failure, unspecified without coma (principal); E43 Unspecified severe protein-calorie malnutrition; R18.8 Other ascites; N17.9 Acute kidney failure, unspecified; Z87.891 Personal history of nicotine dependence; B19.20 Unspecified viral hepatitis C without hepatic coma; K74.60 Unspecified cirrhosis of liver; I12.9 Hypertensive chronic kidney disease with stage 1 through stage 4 chronic kidney disease, or unspecified chronic kidney disease; N18.3 Chronic kidney disease, stage 3 (moderate)
CPT/HCPCS: C1751; C9113; J0696; J1644; J1940; J2354; J2405; J7030; J7050; P9047

== ENCOUNTER → 2016-06-16 | Outpatient (CLI) | payer MEDICAID ==
[~2016-06-16] MED LIST: ALDACTONE100 MG PO; LASIX20 MG PO
== END | disposition disaster alternative care site (69) ==
LOC: GAMB 19:26
DX: K70.31 Alcoholic cirrhosis of liver with ascites (principal); R10.9 Unspecified abdominal pain; R11.0 Nausea; Z79.899 Other long term (current) drug therapy
CPT/HCPCS: A0425; A0426